=== PATIENT | female | born 1955 | race Caucasian/White ===

== ENCOUNTER 2022-12-10 11:24 | Outpatient (AMB) | payer OTHER, SELFPAY ==
--- NOTE | 2022-12-10 11:48 | HO.SPINEOV ---
Intake Intake Visit Reasons: Back pain Intake Note: Ms. Pruitt is here today to follow up on back pain. Mat Machine Tender Required: No Assessment & Plan Assessment & Plan (1) Scoliosis (and kyphoscoliosis), idiopathic: Code(s): M41.20 - Other idiopathic scoliosis, site unspecified Plan Mrs Pruitt is here for a follow-up visit. She is about a year or more out from an L3-5 oblique lumbar interbody fusion to correct scoliosis done at [facility] by Dr. Martines. She did well after the surgery, ultimately underwent a hip replacement as well and she has been recovering from that in the interim. Overall she is very pleased with how things went with both surgeries and her walking is better than ever. She still is having back discomfort in the lower lumbar sacroiliac region. It is particularly aggravated when she is sitting. I did x-rays today, this showed stable placement of the hardware with some residual angulation above the fusion site which is thought to be secondary to the auto fusion that had developed before our surgery. No signs of lucency around the hardware. She does have a collapsed disc at L5-S1 which may be contributing to her pain. Also there may be a component of SI joint inflammation. If the symptoms get bad enough it may be worth considering an injection do either 1 of the spots. Right now she just wants to continue on with activities as tolerated and see if it will go away on her own. This is certainly reasonable plan. With see her back down the road on an as-needed basis. Total amount of time spent in this visit was 20 minutes in discussion of symptoms, lumbar x-ray imaging results and subsequent plan of care Mook Martines MD,PhD [facility] Orders: Orders XR lumbar spine 4V min Today M41.20 - Other idiopathic scoliosis, site unspecified Coding Level of Care Code Est Pt Level 3 (41972) Diagnoses Scoliosis (and kyphoscoliosis), idiopathic M41.20
== END 2022-12-10 14:27 | disposition home or self-care (01) ==
PROVIDERS: Visit Provider Physician Assistant
DX: M41.20 Other idiopathic scoliosis, site unspecified (principal)
CPT/HCPCS: 99213

== ENCOUNTER 2022-12-10 11:24 | Outpatient (REF) | payer OTHER, SELFPAY ==
--- NOTE | ~2022-12-10 | XR_ITS ---
EXAMINATION: XR LUMBOSACRAL SPINE CLINICAL INFORMATION: Idiopathic scoliosis. COMPARISON: None TECHNIQUE: AP and lateral views of the lumbar spine were obtained. Lateral views were obtained in flexion, extension, and neutral positions. FINDINGS: There is bony demineralization. The lowermost ribs are diminutive. There is a moderate lumbar dextroscoliosis. There is multi-level level marked degenerative disc disease and spondylosis extending from T9-T10 through L5-S1. There have been prior L3-L5 posterior fusions and discectomies. No hardware failure or loosening is seen. There is no instability with flexion or extension. There are abdominal and pelvic surgical clips. There are aortoiliac atherosclerotic calcifications. XR/XR lumbar spine 4V min IMPRESSION: 1. No acute fracture or spondylolisthesis is seen. 2. There is no instability with flexion or extension. 3. There is multi-level level marked thoracolumbar degenerative disc disease and spondylosis. 4. There are postoperative changes consistent with prior L3-L5 posterior fusions and discectomies. No hardware failure or loosening is seen.
== END 2022-12-10 11:25 | disposition home or self-care (01) ==
LOC: HO.HOSX 11:24
PROVIDERS: Visit Provider Physician Assistant
DX: M41.20 Other idiopathic scoliosis, site unspecified (principal)
CPT/HCPCS: 72110; 99212

== ENCOUNTER 2025-01-04 14:50 | Outpatient (AMB) | payer MEDICARE, SELFPAY ==
--- NOTE | 2025-01-04 14:51 | A.SPINEOV_ITS ---
Intake Visit Reasons: LBP Intake Note: Ms. Pruitt is here today c/o back pain. that has not went away. Senior Billing Consultant Required: No Allergies No Known Allergies Allergy (Verified 01/04/25 15:02) Assessment & Plan Assessment & Plan (1) Scoliosis (and kyphoscoliosis), idiopathic: Code(s): M41.20 - Other idiopathic scoliosis, site unspecified Category: Medical Plan Mrs Pruitt is here in follow-up. She recently had an increase in pain in her low back after doing a significant amount of housework and cleaning. It has been at times incapacitating. She was worried that maybe something happened to her surgical sites who came in. Most of the pain is localized right over the area where her stab incisions are. She walks with a slightly antalgic and Trendelenburg gait but that is her baseline. Her wounds are all healed up nicely. I sent her for x-rays today and I do not see any issues with her hardware. The angulation of her scoliotic curvature is about the same as it was 2 years ago. I reassured her that I think this is muscular and it should go away on its own. We talked about possibly doing PT but at this point she wants to just see how things go. I will see her back on an as-needed basis. Total amount of time spent in this visit was 20 minutes in discussion of symptoms, lumbar x-ray imaging results and subsequent plan of care Mook Martines MD,PhD [facility] Orders: Orders XR lumbar spine 4V min Today M41.20 - Other idiopathic scoliosis, site uns pecified Coding Level of Care Code Est Pt Level 3 (91667) Diagnoses Scoliosis (and kyphoscoliosis), idiopathic M41.20
--- OUTSIDE RECORDS SUMMARY | 2025-01-04 19:07 | XMS_ITS | Clinical Summary ---
Author Organization [facility] Address [address] [place] [address] Care Team Providers Care Eyeglass Frames Polisher Name Role Phone Edna Oquendo MD Primary Care Prov ider Allergies Active Allergy Reactions Criticality Noted Date Comments Codeine Other (See Comments) ,Nausea And Vomiting 05/28/2009 Oxycodone 12/16/2021 Oxycodone-Acetaminophen Nausea And Vomit ing,Other (See Comments) 05/28/2009 Medications Medication Sig Dispensed Refills Start Date End Date Status aspirin 81 MG EC tablet Take 1 tablet by mouth daily. 0 08/22/2021 Active LISINOPRIL PO Take 5 mg by mouth. 0 07/25/2021 Active metoprolol tartrate (LOPRESSOR) 25 MG tablet Take 1 tablet by mouth 2 (two) times a day. 0 06/05/2021 Active Family History Medical History Relation Name Comments Hypertension Mother Relation Name Status Comments Mother Social History Tobacco Use Types Packs/Day Years Used Date Smoking Tobacco: Former Smokeless Tobacco: Never Alcohol Use Standard Drinks/Week Comments Yes 5 (1 standard drink = 0.6 oz pur e alcohol) Sex and Gender Information Value Date Recorded Sex Assigned at Not on file Gender Identity Not on file Sexual Orientation Not on file Job Start Date Occupation Industry Not on file Not on file Not on file Last Filed Vital Signs Vital Sign Reading Time Taken Comments Blood Pressure - - Pulse - - Temperature - - Respiratory Rate - - Oxygen Saturation - - Inhaled Oxygen Concentration - - Weight 87.5 kg (193 lb) 01/07/2022 11:08 AM EDT Height 157.5 cm (5' 2 ) 01/07/2022 11:08 AM EDT Body Mass Index 35.3 01/07/2022 11:08 AM EDT Plan of Treatment Health Maintenance Due Date Last Done Comments Hepatitis C Screening 1955 COVID-19 Vaccine (#1) 06/14/1958 Depression Screening 1969 BMI Counseling 12/16/1975 Preventative Health Evaluation 12/16/1975 Colon Cancer Screening (Colonoscopy) 2002 Breast Cancer Screening (Mammogram) 12/16/2007 Shingrix-Zoster Vaccine (1 of 2) 12/16/2007 Fall Risk Assessment 2022 Osteoporosis Screening (DEXA Scan) 2022 Pneumococcal Vaccine (1 of 1 - PCV) 2022 DTap / Tdap / Td (2 - Td or Tdap) 09/17/2024 015 Influenza Vaccine (#1) 2024 RSV Adult > 60+ Yrs or Pregn ant (1 - 1-dose 75+ series) 2032 Hepatitis B Vaccines Aged Out No long er eligible based on patient's age to complete this topic RSV Ped < 20 months Aged Out No longe r eligible based on patient's age to complete this topic Care Teams Eyeglass Frames Polisher Relationship Specialty Start Date End Date Edna Oquendo MD PCP - General Internal Medicine 01/03/21
--- OUTSIDE RECORDS SUMMARY | 2025-01-04 19:07 | XMS_ITS ---
Author Name [facility] Organization Unknown Care Team Organization Name Specialty Phone Email Start Date End Da te [facility]ly [facility]CO 11/29/2024 [facility] JERRY DOMINGUEZ Primary Care 08/17/2022 11/29/2023 [facility] Stevenson Chaves Primary Care 06/17/2022 11/29/2023 [facility] Mariama Lagunas Primary Care 02/17/20222023
== END 2025-01-04 15:30 | disposition home or self-care (01) ==
LOC: HO.HNS 14:51
PROVIDERS: Visit Provider Physician Assistant
DX: M41.20 Other idiopathic scoliosis, site unspecified (principal)
CPT/HCPCS: 99213

== ENCOUNTER 2025-01-04 14:50 | Outpatient (REF) | payer MEDICARE, SELFPAY ==
--- NOTE | ~2025-01-04 | XR_ITS ---
EXAMINATION: XR LUMBAR SPINE 4 OR MORE VIEWS HISTORY: M41.20 - Other idiopathic scoliosis, site unspecified COMPARISON: Comparison is made with the prior examination dated 12/10/2022. FINDINGS: AP, and neutral, flexion, and extension lateral views of the lumbar spine are submitted. The patient is again noted to be status post posterior fusion of L3-L5 with pedicle screws, spinal stabilization rods, and an intervertebral spacer. The hardware is intact. There is moderate dextroscoliosis. The vertebral bodies maintain normal height. There is diffuse severe degenerative disc disease with disc space narrowing and osteophyte formation. There is no abnormal motion with flexion or extension. There is calcification of the abdominal aorta. XR/XR lumbar spine 4V min IMPRESSION: 1. Moderate dextroscoliosis and severe degenerative disc disease. 2. Status post posterior fusion of L3-L5. No abnormal motion with flexion or extension. Electronically signed by: Will Woodard MD 01/04/2025 03:23 PM EDT
== END 2025-01-04 14:51 | disposition home or self-care (01) ==
LOC: HO.HOSX 14:50
PROVIDERS: Visit Provider Physician Assistant
DX: M41.26 Other idiopathic scoliosis, lumbar region (principal)
CPT/HCPCS: 72110; 99212

== ENCOUNTER → 2025-01-04 15:10 | Outpatient (BNV) | payer MEDICARE, SELFPAY | PROVIDERS: Visit Provider Radiology Diagnostic Radiology | DX: M51.369 Other intervertebral disc degeneration, lumbar region without mention of lumbar back pain or lower extremity pain (principal) | CPT/HCPCS: 72110 ==